=== PATIENT | male | born 1955 | race Caucasian/White ===

== ENCOUNTER 2020-04-01 06:18 | Outpatient (REF) | payer BC, SELFPAY | END 2020-04-01 06:19 | disposition home or self-care (01) | LOC: HO.LAB 06:18 | PROVIDERS: Visit Provider Internal Medicine | DX: Z20.828 Contact with and (suspected) exposure to other viral communicable diseases (principal) | CPT/HCPCS: C9803; U0003 ==

== ENCOUNTER 2020-04-30 06:03 | Outpatient (REF) | payer BC, SELFPAY ==
[2020-04-30 11:12] LABS: MANUAL DIFF FLAG NO
[2020-04-30 11:32] LABS: Basophils Percent Auto 0.5 % (0-2); Eosinophils Absolute Auto 0.2 X10*3/uL (0.0-0.4); Eosinophils Percent Auto 5.1 % (0-4); Hematocrit 44.2 % (42-52); Hemoglobin 14.6 g/dl (14.0-18.0); Imm Gran Abs Auto 0.01 X10*3/uL (0.00-0.03); Imm Gran Pct Auto 0.2 % (0.0-0.4); Lymphocytes Absolute Auto 1.5 X10*3/uL (1.2-4.9); Lymphocytes Percent Auto 37.3 % (20-40); Mean Corpuscular Hemoglobin 29.9 pg (27.0-33.0); Mean Corpuscular Volume 90.6 fL (80-98); Mean Platelet Volume 10.9 fL (9.4-12.4); Monocytes Absolute Auto 0.6 X10*3/uL (0.1-1.2); Monocytes Percent Auto 13.5 % (2-11); Neutrophils Absolute Auto 1.8 X10*3/uL (2.0-8.3); Neutrophils Percent Auto 43.4 % (45-73); Platelet Count 199 X10*3/uL (160-400); Red Blood Count 4.88 X10*6/uL (4.60-5.80); Red Cell Distribution Width 12.3 % (11.0-16.0); White Blood Count 4.1 X10*3/uL (4.8-10.8)
[2020-04-30 11:50] LABS: Alanine Aminotransferase 22 U/L (0-40); Alkaline Phosphatase 60 U/L (39-117); Anion Gap 11 (12-20); Aspartate Amino Transferase 21 U/L (5-37); Bilirubin Total 0.8 mg/dL (0.0-1.0); Blood Urea Nitrogen 18 mg/dL (9-16); Calcium 8.6 mg/dL (8.4-10.2); Carbon Dioxide 28 mmol/L (22-29); Chloride 105 mmol/L (96-108); Cholesterol 178 mg/dL; Estimated Glomerular Filt Rate > 60; Glucose Fasting 100 mg/dL (60-99); HDL Cholesterol 44 mg/dL; LDL Cholesterol Calculated 104 mg/dl; Potassium 4.1 mmol/l (3.3-5.1); Sodium 140 mmol/L (135-145); Total Protein 6.7 g/dL (6.5-8.0); Triglycerides 153 mg/dL
[2020-04-30 12:13] LABS: Prostate Specific Antigen Scr 2.51 ng/mL (<0.05-4.0); T4 Thyroxine 6.9 ug/dL (4.5-12.0)
[2020-04-30 12:17] LABS: Vitamin B12 246 pg/mL (200-900)
[2020-04-30 12:34] LABS: Thyroid Stimulating Hormone 2.22 uIU/mL (0.32-4.0)
== END 2020-04-30 06:04 | disposition home or self-care (01) ==
LOC: HO.HMGCLDS 06:03
PROVIDERS: PCP Internal Medicine; Visit Provider Internal Medicine
DX: E78.00 Pure hypercholesterolemia, unspecified (principal); Z12.5 Encounter for screening for malignant neoplasm of prostate
CPT/HCPCS: 36415; 80053; 80061; 82607; 82746; 84153; 84436; 84443; 85025

== ENCOUNTER 2020-10-09 14:54 | Emergency (ER) | payer OTHER, BC, SELFPAY ==
--- NOTE | ~2020-10-09 | XR_ITS ---
EXAMINATION: XR HAND, LEFT CLINICAL INFORMATION: Crush injury/laceration. COMPARISON: None TECHNIQUE: PA, lateral, and oblique views of the left hand. FINDINGS: There is a nondisplaced fracture phalangeal tuft fourth digit and a soft tissue laceration involving the distal third and fourth digits. No additional bony abnormality seen. XR/XR hand LT min 3V IMPRESSION: Nondisplaced fracture phalangeal tuft fourth digit. Soft tissue laceration distal phalanx third and fourth digits volar aspect.
[2020-10-09 15:02] VITALS: BP 160/89; PULSE 99; RESP 14; TEMP 37.1; O2SAT 95; BMI 30.7
[2020-10-09] MEDS: Diphth,Pertus(ACell),Tet Adult 0.5 ML SYRINGE IM (15:53)
[2020-10-09] MEDS: Lidocaine HCl 1 % MPF 5 ML VIAL SUBCUT ×2 (15:55)
--- NOTE | 2020-10-09 16:09 | ED.EXTPRO ---
HPI - Extremity Problem General Chief complaint: Extremity Injury, Upper Stated complaint: FINGER INJ AT WORK Time Seen by Provider: 10/09/20 15:40 History of Present Illness HPI Narrative: Patient complains of injury to left 3rd and 4th fingers after the fingertips were caught in a roller at work, he does complain of some decreased sensation in the tip of the 4th finger, no other injury Related Data Home Medications Medication Instructions Recorded Confirmed cholecalciferol (vitamin D3) 25 25 mcg PO DAILY 05/13/20 05/13/20 mcg (1,000 unit) capsule flaxseed oil 1,000 mg capsule 1,000 mg PO DAILY 05/13/20 05/13/20 lactobacillus combination no.8 3 3,000 mmu cells PO DAILY 05/13/20 05/13/20 billion cell capsule uskthmla-own-iirdg acid 300 1 tab PO DAILY 05/13/20 05/13/20 mcg-lycopene 600 mcg-lutein 300 mcg tablet Previous Rx's Medication Instructions Recorded simvastatin 5 mg tablet 5 mg PO BEDTIME #90 tab 04/26/20 cephalexin 500 mg PO QID 3 Days #12 tab 10/09/20 cephalexin 500 mg capsule 500 mg PO QID #16 cap 10/15/20 Allergies Allergy/AdvReac Type Severity Reaction Status Date / Time Penicillins Allergy Mild Diarrhea Verified 10/28/20 14:27 Review of Systems Review of Systems: Positive blur left 3rd and 4th finger pain Negatives are no head injury no headache no neck pain no back pain no weakness Yes all other systems are reviewed and are negative PMFSH Past Medical History Source: nursing notes reviewed Medical History Allergic rhinitis Anxiety and depression Hypercholesterolemia Obesity (BMI 30-39.9) Surgical History No pertinent past surgical history Family History Family History Father Mouth cancer Mother Melanoma Maternal Uncle Lung cancer Prostate cancer Social History Social History (Updated 10/28/20 @ 14:31 by Karen Duran) Alcohol intake: current Alcohol intake frequency: a few times a week Alcohol type: beer 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 [employer] Physical Exam Vital Signs: Vital Signs: Last Vital Signs Temp 98.8 F 10/09/20 15:02 Pulse 99 06/02/21 15:02 Resp 14 10/09/20 15:02 BP 160/89 H 10/09/20 15:02 Pulse Ox 95 10/09/20 15:02 Body Mass Index 30.7 General appearance is no acute distress Head is normocephalic atraumatic Neck is supple Respiratory no distress Left hand exam, there is decreased sensation in left 3rd and 4th finger tips, there are skin avulsions of both left 3rd and 4th finger left middle finger has a large subungual hematoma and the nail is loose, there is no obvious skin lacerations there was tenderness No evidence of any tendon deficit Course Course Course Narrative: X-ray showed a nondisplaced fracture of the 4th digit, which is an open fracture because of the wound above it Left 3rd finger was cleansed and irrigated a digital block was placed and the loose nail was trimmed and the proximal portion was placed back in the nail fold Patient is treated with antibiotic and [facility] or [facility]opedist Discharge Plan Discharge Clinical Impression: Avulsion of fingernail of left hand, Open fracture Patient Disposition: Home, Self-Care Additional Instructions: X-ray showed that there was a fracture of the ring finger so an open fracture can get infected so we are treating with antibiotic for 3 days to prevent infection Follow with orthopedist, you may need a referral from work [facility] so it is all covered by [place] Got a tetanus shot today and we are giving you Keflex antibiotic for 3 days to prevent infection Return anytime for redness swelling pain fever any sign of infection any worse condition any concerns I slid a piece of the nail back into the nail bed to help hold the space open and hopefully new nail will grow You got a tetanus shot today Take probiotics with antibiotic to help prevent diarrhea Prescriptions: New cephalexin 500 mg tablet 500 mg PO QID 3 Days Qty: 12 RF: 0 No Action simvastatin 5 mg tablet 5 mg PO BEDTIME Qty: 90 RF: 1 Centrum Silver Ultra Men's 300-600-300 mcg tablet 1 tab PO DAILY RF: 0 flaxseed oil 1,000 mg capsule 1,000 mg PO DAILY RF: 0 cholecalciferol (vitamin D3) 25 mcg (1,000 unit) capsule 25 mcg PO DAILY RF: 0 Adult Probiotic 3 billion cell capsule 3,000 mmu cells PO DAILY RF: 0 cephalexin 500 mg capsule 500 mg PO QID Qty: 16 RF: 0 Referrals: [facility] [Provider Group] - 2 days (Finger nail avulsion left 3rd and 4th fingers and open fracture to left 4th finger) Teresa Rodriguez MD [Physician] - 2 days (Fingernail avulsion to left 3rd and 4th fingers, open fracture left 4th finger) Stand Alone Forms: Work/School Release Interventions: ED Discharge Assessment Last Done: 10/09/20 17:09 Discharge Date/Time: 10/09/20 17:11
[2020-10-09] MEDS: cephALEXin 500 MG CAPSULE PO (16:40)
== END 2020-10-09 17:11 | disposition home or self-care (01) ==
PROVIDERS: Emergency Provider Emergency Medicine; PCP Internal Medicine
DX: S62.665B Nondisplaced fracture of distal phalanx of left ring finger, initial encounter for open fracture (principal); S61.303A Unspecified open wound of left middle finger with damage to nail, initial encounter; W31.89XA Contact with other specified machinery, initial encounter; Y93.89 Activity, other specified; Y92.59 Other trade areas as the place of occurrence of the external cause; Y99.0 Civilian activity done for income or pay
CPT/HCPCS: 29130; 73130; 73140; 90471; 90715; 96372; 99283; 99284

== ENCOUNTER → 2020-10-11 12:37 | Outpatient (BNVA) | payer OTHER, SELFPAY | PROVIDERS: Visit Provider Physician Assistant Medical | DX: S61.313A Laceration without foreign body of left middle finger with damage to nail, initial encounter (principal); S61.315A Laceration without foreign body of left ring finger with damage to nail, initial encounter; S62.665B Nondisplaced fracture of distal phalanx of left ring finger, initial encounter for open fracture; W31.9XXA Contact with unspecified machinery, initial encounter | CPT/HCPCS: 99202 ==

== ENCOUNTER → 2020-10-14 15:07 | Outpatient (BNVA) | payer OTHER, SELFPAY | PROVIDERS: Visit Provider Orthopaedic Surgery | DX: S62.635D Displaced fracture of distal phalanx of left ring finger, subsequent encounter for fracture with routine healing (principal); S69.92XD Unspecified injury of left wrist, hand and finger(s), subsequent encounter | CPT/HCPCS: 99202 ==

== ENCOUNTER → 2020-10-28 14:18 | Outpatient (BNVA) | payer OTHER, SELFPAY | PROVIDERS: Visit Provider Orthopaedic Surgery | DX: S67.195A Crushing injury of left ring finger, initial encounter (principal); S67.193A Crushing injury of left middle finger, initial encounter; S62.665B Nondisplaced fracture of distal phalanx of left ring finger, initial encounter for open fracture; R20.0 Anesthesia of skin | CPT/HCPCS: 99212 ==

== ENCOUNTER 2020-11-05 06:02 | Outpatient (REF) | payer BC, SELFPAY ==
[2020-11-05 11:54] LABS: Alanine Aminotransferase 19 U/L (0-40); Albumin Level 4.3 g/dL (3.5-5.0); Alkaline Phosphatase 62 U/L (39-117); Anion Gap 13 (12-20); Aspartate Amino Transferase 19 U/L (5-37); Bilirubin Total 1.2 mg/dL (0.0-1.0); Blood Urea Nitrogen 22 mg/dL (9-16); Calcium 9.1 mg/dL (8.4-10.2); Carbon Dioxide 25 mmol/L (22-29); Chloride 107 mmol/L (96-108); Cholesterol 201 mg/dL; Estimated Glomerular Filt Rate > 60; Glucose Random 99 mg/dL (60-115); HDL Cholesterol 56 mg/dL; LDL Cholesterol Calculated 123 mg/dl; Potassium 4.1 mmol/L (3.3-5.1); Sodium 141 mmol/L (135-145); Total Protein 6.9 g/dL (6.5-8.0); Triglycerides 112 mg/dL
[2020-11-05 12:15] LABS: Estimated Average Glucose 111 mg/dL; Hemoglobin A1c % 5.5 %
== END 2020-11-05 06:03 | disposition home or self-care (01) ==
LOC: HO.HMGCLDS 06:02
PROVIDERS: PCP Internal Medicine; Visit Provider Internal Medicine
DX: R73.02 Impaired glucose tolerance (oral) (principal); E78.00 Pure hypercholesterolemia, unspecified
CPT/HCPCS: 36415; 80053; 80061; 83036

== ENCOUNTER → 2021-01-08 12:10 | Outpatient (BNVA) | payer OTHER, SELFPAY | PROVIDERS: PCP Internal Medicine; Visit Provider Physician Assistant Medical | DX: S61.032D Puncture wound without foreign body of left thumb without damage to nail, subsequent encounter (principal); W86.1XXD Exposure to industrial wiring, appliances and electrical machinery, subsequent encounter | CPT/HCPCS: 73120; 99203 ==

== ENCOUNTER → 2021-01-10 13:13 | Outpatient (BNVA) | payer OTHER, SELFPAY | PROVIDERS: PCP Internal Medicine; Visit Provider Physician Assistant Medical | DX: S61.04 Puncture wound with foreign body of thumb without damage to nail (principal); X58.XXXD Exposure to other specified factors, subsequent encounter | CPT/HCPCS: 99213 ==

== ENCOUNTER → 2021-01-20 10:43 | Outpatient (BNVA) | payer OTHER, SELFPAY | PROVIDERS: PCP Internal Medicine; Visit Provider Physician Assistant Medical | DX: S61.04 Puncture wound with foreign body of thumb without damage to nail (principal); X58.XXXD Exposure to other specified factors, subsequent encounter | CPT/HCPCS: 99213 ==

== ENCOUNTER 2021-05-14 08:23 | Outpatient (REF) | payer BC, SELFPAY ==
[2021-05-14 08:35] LABS: MANUAL DIFF FLAG NO
[2021-05-14 08:41] LABS: Basophils Percent Auto 0.6 % (0-2); Eosinophils Absolute Auto 0.2 X10*3/uL (0.0-0.4); Eosinophils Percent Auto 4.5 % (0-4); Hematocrit 46.1 % (42.0-52.0); Hemoglobin 15.5 g/dl (14.0-18.0); Imm Gran Abs Auto 0.01 X10*3/uL (0.00-0.03); Imm Gran Pct Auto 0.2 % (0.0-0.4); Lymphocytes Absolute Auto 1.3 X10*3/uL (1.2-4.9); Lymphocytes Percent Auto 25.4 % (20-40); Mean Corpuscular HGB Conc 33.6 g/dl (31.0-36.0); Mean Corpuscular Hemoglobin 29.8 pg (27.0-33.0); Mean Corpuscular Volume 88.5 fL (80.0-98.0); Mean Platelet Volume 9.6 fL (9.4-12.4); Monocytes Absolute Auto 0.5 X10*3/uL (0.1-1.2); Monocytes Percent Auto 10.3 % (2-11); Platelet Count 194 X10*3/uL (160-400); Red Blood Count 5.21 X10*6/uL (4.60-5.80); Red Cell Distribution Width 12.4 % (11.0-16.0); White Blood Count 5.1 X10*3/uL (4.8-10.8)
[2021-05-14 09:11] LABS: Alanine Aminotransferase 33 U/L (0-40); Albumin Level 4.3 g/dL (3.5-5.0); Alkaline Phosphatase 62 U/L (39-117); Anion Gap 11 (12-20); Aspartate Amino Transferase 24 U/L (5-37); Bilirubin Total 1.4 mg/dL (0.0-1.0); Blood Urea Nitrogen 18 mg/dL (9-16); Calcium 9.5 mg/dL (8.4-10.2); Carbon Dioxide 26 mmol/L (22-29); Chloride 108 mmol/L (96-108); Cholesterol 200 mg/dL; Estimated Glomerular Filt Rate > 60; Glucose Random 105 mg/dL (60-115); HDL Cholesterol 48 mg/dL; LDL Cholesterol Calculated 127 mg/dl; Potassium 4.4 mmol/L (3.3-5.1); Sodium 141 mmol/L (135-145); Total Protein 7.1 g/dL (6.5-8.0); Triglycerides 127 mg/dL
[2021-05-14 09:31] LABS: Free T4 (Free Thyroxine) 1.11 ng/dL (0.71-1.85); Prostate Specific Antigen Scr 2.12 ng/mL (<0.05-4.0); Thyroid Stimulating Hormone 1.77 uIU/mL (0.32-4.0)
[2021-05-14 09:43] LABS: Folate > 20.0 ng/mL (> or = 4.0); Vitamin B12 673 pg/mL (200-900)
== END 2021-05-14 08:24 | disposition home or self-care (01) ==
LOC: HO.LAB 08:23
PROVIDERS: PCP Internal Medicine; Visit Provider Internal Medicine
DX: R73.02 Impaired glucose tolerance (oral) (principal); E78.00 Pure hypercholesterolemia, unspecified; Z12.5 Encounter for screening for malignant neoplasm of prostate
CPT/HCPCS: 36415; 80053; 80061; 82607; 82746; 84153; 84439; 84443; 85025

== ENCOUNTER → 2022-04-13 07:56 | Outpatient (BNVA) | payer OTHER, SELFPAY | PROVIDERS: PCP Internal Medicine; Visit Provider Internal Medicine | DX: T22.212A Burn of second degree of left forearm, initial encounter (principal); W31.89XA Contact with other specified machinery, initial encounter | CPT/HCPCS: 99202 ==

== ENCOUNTER → 2022-04-21 07:39 | Outpatient (BNVA) | payer OTHER, SELFPAY | PROVIDERS: PCP Internal Medicine; Visit Provider Internal Medicine | DX: T22.212A Burn of second degree of left forearm, initial encounter (principal); W31.89XA Contact with other specified machinery, initial encounter | CPT/HCPCS: 99213 ==

== ENCOUNTER → 2022-04-28 07:43 | Outpatient (BNVA) | payer OTHER, SELFPAY | PROVIDERS: PCP Internal Medicine; Visit Provider Internal Medicine | DX: T22.212D Burn of second degree of left forearm, subsequent encounter (principal); W31.89XD Contact with other specified machinery, subsequent encounter | CPT/HCPCS: 99213 ==

== ENCOUNTER 2022-05-13 06:01 | Outpatient (REF) | payer OTHER, SELFPAY ==
[2022-05-13 11:11] LABS: MANUAL DIFF FLAG NO
[2022-05-13 11:26] LABS: Basophils Percent Auto 0.6 % (0-2); Eosinophils Absolute Auto 0.3 X10*3/uL (0.0-0.4); Eosinophils Percent Auto 6.2 % (0-4); Hematocrit 45.1 % (42.0-52.0); Hemoglobin 15.4 g/dl (14.0-18.0); Imm Gran Abs Auto 0.01 X10*3/uL (0.00-0.03); Imm Gran Pct Auto 0.2 % (0.0-0.4); Lymphocytes Absolute Auto 1.7 X10*3/uL (1.2-4.9); Lymphocytes Percent Auto 34.1 % (20-40); Mean Corpuscular HGB Conc 34.1 g/dl (31.0-36.0); Mean Corpuscular Hemoglobin 30.7 pg (27.0-33.0); Mean Platelet Volume 10.2 fL (9.4-12.4); Monocytes Absolute Auto 0.6 X10*3/uL (0.1-1.2); Monocytes Percent Auto 11.9 % (2-11); Neutrophils Absolute Auto 2.3 x10*3/uL (2.0-8.3); Platelet Count 209 X10*3/uL (160-400); Red Blood Count 5.01 X10*6/uL (4.60-5.80); Red Cell Distribution Width 12.9 % (11.0-16.0); White Blood Count 4.9 X10*3/uL (4.8-10.8)
[2022-05-13 11:34] LABS: Estimated Average Glucose 108 mg/dL; Hemoglobin A1c % 5.4 %
[2022-05-13 11:55] LABS: Alanine Aminotransferase 26 U/L (0-40); Albumin Level 4.1 g/dL (3.5-5.0); Alkaline Phosphatase 59 U/L (39-117); Anion Gap 10 (12-20); Aspartate Amino Transferase 22 U/L (5-37); Bilirubin Total 0.8 mg/dL (0.0-1.0); Blood Urea Nitrogen 18 mg/dL (9-16); Calcium 9.2 mg/dL (8.4-10.2); Carbon Dioxide 28 mmol/L (22-29); Chloride 105 mmol/L (96-108); Cholesterol 200 mg/dL; Estimated Glomerular Filt Rate > 60; Glucose Random 100 mg/dL (60-115); HDL Cholesterol 48 mg/dL; LDL Cholesterol Calculated 133 mg/dl; Potassium 4.4 mmol/L (3.3-5.1); Sodium 139 mmol/L (135-145); Total Protein 6.6 g/dL (6.5-8.0); Triglycerides 98 mg/dL
[2022-05-13 11:57] LABS: Free T4 (Free Thyroxine) 1.14 ng/dL (0.71-1.85); Prostate Specific Antigen Scr 1.93 ng/mL (<0.05-4.0); Thyroid Stimulating Hormone 2.22 uIU/mL (0.32-4.0)
[2022-05-13 12:24] LABS: Folate > 20.0 ng/mL (> or = 4.0); Vitamin B12 578 pg/mL (200-900)
== END 2022-05-13 06:02 | disposition home or self-care (01) ==
LOC: HO.HMGCLDS 06:01
PROVIDERS: PCP Internal Medicine; Visit Provider Internal Medicine
DX: E78.00 Pure hypercholesterolemia, unspecified (principal); R73.02 Impaired glucose tolerance (oral); Z12.5 Encounter for screening for malignant neoplasm of prostate
CPT/HCPCS: 36415; 80053; 80061; 82607; 82746; 83036; 84153; 84439; 84443; 85025

== ENCOUNTER 2023-05-18 06:01 | Outpatient (REF) | payer BC, SELFPAY ==
[2023-05-18 11:10] LABS: MANUAL DIFF FLAG NO
[2023-05-18 11:20] LABS: Basophils Percent Auto 0.9 % (0-2); Eosinophils Absolute Auto 0.2 X10*3/uL (0.0-0.4); Hematocrit 44.6 % (42.0-52.0); Hemoglobin 14.7 g/dl (14.0-18.0); Imm Gran Abs Auto 0.01 X10*3/uL (0.00-0.03); Imm Gran Pct Auto 0.2 % (0.0-0.4); Lymphocytes Absolute Auto 1.7 X10*3/uL (1.2-4.9); Lymphocytes Percent Auto 36.6 % (20-40); Mean Corpuscular Hemoglobin 29.9 pg (27.0-33.0); Mean Corpuscular Volume 90.7 fL (80.0-98.0); Mean Platelet Volume 10.4 fL (9.4-12.4); Monocytes Absolute Auto 0.6 X10*3/uL (0.1-1.2); Monocytes Percent Auto 11.9 % (2-11); Neutrophils Absolute Auto 2.1 x10*3/uL (2.0-8.3); Neutrophils Percent Auto 45.4 % (45-73); Platelet Count 188 X10*3/uL (160-400); Red Blood Count 4.92 X10*6/uL (4.60-5.80); Red Cell Distribution Width 13.2 % (11.0-16.0); White Blood Count 4.6 X10*3/uL (4.8-10.8)
[2023-05-18 11:31] LABS: Estimated Average Glucose 111 mg/dL; Hemoglobin A1c % 5.5 % (<6.0)
[2023-05-18 11:47] LABS: Alanine Aminotransferase 21 U/L (0-40); Alkaline Phosphatase 57 U/L (39-117); Anion Gap 10 (12-20); Aspartate Amino Transferase 21 U/L (5-37); Bilirubin Total 1.2 mg/dL (0.0-1.0); Blood Urea Nitrogen 23 mg/dL (9-16); Calcium 9.1 mg/dL (8.4-10.2); Carbon Dioxide 25 mmol/L (22-29); Chloride 108 mmol/L (96-108); Cholesterol 189 mg/dL (<200); Estimated Glomerular Filt Rate > 60; Glucose Random 99 mg/dL (60-115); HDL Cholesterol 47 mg/dL (>40); LDL Cholesterol Calculated 122 mg/dL (<100); Potassium 4.1 mmol/L (3.3-5.1); Sodium 139 mmol/L (135-145); Total Protein 6.8 g/dL (6.5-8.0); Triglycerides 101 mg/dL (<150)
[2023-05-18 11:53] LABS: Free T4 (Free Thyroxine) 0.99 ng/dL (0.71-1.85); Thyroid Stimulating Hormone 1.72 uIU/mL (0.32-4.0)
[2023-05-18 12:11] LABS: Prostate Specific Antigen Scr 3.01 ng/mL (<0.05-4.0); Vitamin B12 764 pg/mL (200-900)
[2023-05-18 12:28] LABS: Folate 14.6 ng/mL (> or = 4.0)
== END 2023-05-18 06:02 | disposition home or self-care (01) ==
LOC: HO.HMGCLDS 06:01
PROVIDERS: PCP Internal Medicine; Visit Provider Internal Medicine
DX: Z12.5 Encounter for screening for malignant neoplasm of prostate (principal); R73.02 Impaired glucose tolerance (oral); E78.00 Pure hypercholesterolemia, unspecified
CPT/HCPCS: 36415; 80053; 80061; 82607; 82746; 83036; 84153; 84439; 84443; 85025

== ENCOUNTER 2023-05-24 17:01 | Outpatient (AMB) | payer BC, SELFPAY ==
[2023-05-24 17:07] VITALS: BP 144/80; PULSE 80; O2SAT 95; BMI 33.0
--- NOTE | 2023-05-24 17:07 | A.OFFPC_ITS ---
Vital Signs 05/24/23 17:07 Height 5 ft 9.5 in Weight 226 lb 8 oz BMI 33.0 BP 144/80 H Blood Pressure Location Lt brachial Position Sitting Pulse 80 Pulse Source Pulse Oximeter Pulse Oximetry (%) 95 Oxygen Delivery Method Room Air Intake Visit Reasons: PHYSICAL Intake Note: Patient is here today for a physical. Licensed Psychologist Director Required: No Accompanied by: Self / Same As Patient Allergies Penicillins Allergy (Mild, Verified 05/24/23 17:13) Diarrhea Medication List - Last Reconciled 05/24/23 by Anita Geroge MD biotin 5 mg PO DAILY cholecalciferol (vitamin D3) 25 mcg PO DAILY cyanocobalamin (vitamin B-12) 1,000 mcg PO DAILY flaxseed oil 1,000 mg PO DAILY lactobacillus combination no.8 (Adult Probiotic) 3,000 mmu cells PO DAILY lm-rki-qunyq-X2-xxizbtt-uhmlez [id number] mcg (Centrum Silver Ultra Men's) 1 tab PO DAILY simvastatin 5 mg PO BEDTIME Tobacco use date assessed: 05/24/23 Fall risk assessment: No Falls in past year Last assessed Fall Risk: 05/24/23 Dental Screening Dental Screen Date: 05/24/23 Did you have a dental visit in the last 12 months?: Yes Did you have a dental problem in the last 6 months where you did not have access to dental care?: No Was dental information given to patient?: Patient has dentist HPI PHYSICAL HPI Details 68-year-old obese male with hypercholest erolemia impaired glucose tolerance coming in for physical exam last seen in May 2022. Patient's colonoscopy up-to-date March 2018. Review of the notes October 2022 seen [facility] the [facility] for sinus problems treated with Z-Parker. problem of deviated septum. recently slipped and fall on back - no cp, sob, syncope. bruise on extremeties. urine slow stream [facility] Medical History Allergic rhinitis Anxiety and depression Hypercholesterolemia Obesity (BMI 30-39.9) Surgical History No pertinent past surgical history Family History Father Mouth cancer Alcohol abuse Mother Melanoma Maternal Uncle Lung cancer Prostate cancer Social History (Updated 05/24/23 @ 17:17 by Anita George MD) Housing: House Alcohol intake: current Alcohol intake frequency: a few times a week Alcohol type: beer Comment: 2 days 4 beers each time a week Patient Tobacco Use Status: Former Tobacco user Tobacco use type: Cigarette Years Smoked: quit at 38 years old e-Cigarette/Vaping Use: Never Used Second Hand Smoke Exposure: No service: No Current occupational status: employed 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 1. Little interest or pleasure in doing things: not at all 2. Feeling down, depressed, or hopeless: not at all 3. Trouble falling or staying asleep, or sleeping too much: not at all 4. Feeling tired or having little energy: not at all 5. Poor appetite or overeating: not at all 6. Feeling bad about yourself - or that you are a failure or have let yourself or your family down: not at all 7. Trouble concentrating on things, such as reading the newspaper or watching television: not at all 8. Moving or speaking so slowly that other people could have noticed. Or the op posite - being so fidgety or restless that you have been moving around a lot more than usual: not at all 9. Thoughts that you would be better off or of hurting yourself in some way: not at all Total score: 0 Depression Screening Interpretation: Negative Depression Screening Done: Yes 64171 - PHQ-9 Billing: Yes Source: Developed by Drs. Derian Holman, Madisyn Zuniga, Deo Mann and colleagues, with an educational anne from [employer]. Thrive Questionnaire Date Thrive assessed: 05/24/23 I am a: Patient What is your living situation today?: I have a steady place to live Within the past 12 months, did the food you bought not last and you didn't have the money to get more?: Never true Within the past 12 months, did you worry whether your food would run out before you got money to buy more?: Never true Do you have trouble paying for medicines?: No Do you have trouble getting transportation to medical appointments?: No Do you have trouble paying your heating and electricity bill?: No Do you have trouble taking care of your child, family member or friend?: No Do you have trouble with day-to-day activities such as bathing, preparing meals, shopping, managing finances, etc.?: No Are you currently unemployed and looking for a job?: No Are you interested in more education?: No Please select the resources that you would like help with: None AUDIT C Alcohol Use Questionnaire (AUDIT-C) 1. How often do you have a drink containing alcohol?: Monthly or less 2. How many drinks containing alcohol do you have on a typical day when you are drinking?: 3 or 4 3. How often do you have six or more drinks on one occasion?: Never Total Score: 2 URIEL-7 AMB Questionnaire URIEL-7 Date URIEL - 7 assessed: 05/24/23 Feeling nervous, anxious, or on edge: 0 = Not at all Not being able to stop or control worryin = Not at all Worrying too much about different things: 0 = Not at all Trouble relaxin = Not at all Being so restless that it is hard to sit still: 0 = Not at all Becoming easily annoyed or irritable: 0 = Not at all Feeling afraid as if something awful might happen: 0 = Not at all Total URIEL-7 score (0-4 normal; 5-9 mild; 10-14 moderate; 15-21 severe): 0 Source: Developed by Drs. Derian Holman, Madisyn Zuniga, Deo Mann and colleagues, with an educational anne from [employer]. URIEL-7 Assessment Billing URIEL-7 Assessment Tool: URIEL-7 Assessment 92075 Review of Systems Const Denies poor appetite and Denies weakness Eyes Denies no additional complaints ENT Reports Normal hearing present, Denies dizziness, Denies nasal congestion, Denies tinnitus and Denies sore throat Card Denies chest pain, Denies syncope, Denies rapid heart rate and Denies dyspnea Resp Denies cough and Denies dyspnea GI Denies change in stool character, Reports constipation, Denies diarrhea, Denies nausea and Denies vomiting Denies dysuria and Denies urinary frequency Neuro Reports Normal hearing present, Denies confusion, Denies dizziness, Denies syncope and Denies weakness Psych Denies confusion Physical exam (Primary Care) Vital Signs: Last Vital Signs Pulse 80 05/24/23 17:07 BP 144/80 H 05/24/23 17:07 Pulse Ox 95 05/24/23 17:07 Oxygen Delivery Method Room Air 05/24/23 17:07 BMI result Body Mass Index 33.0 Tobacco/Smoking Status: Tobacco use Status Tobacco use date assessed 05/18/22 05/24/23 17:10 Patient Tobacco Use Status Former Tobacco user 05/24/23 17:10 Tobacco use type Cigarette 05/24/23 17:10 e-Cigarette/Vaping Use Never Used 05/24/23 17:10 PHQ-9: PHQ-9 Score PHQ-9: Total score 0 05/24/23 17:10 Depression Screening Interpretation: Negative Thrive Assessment: Date of Thrive Assessment Date Thrive assessed 05/24/23 05/24/23 17:10 Const General: No confusion Orientation/consciousness: No confusion HENMT Head: Yes normocephalic Ears: external ears normal and TM's normal bilaterally Face and sinus: Yes normal facial exam Mouth: moist mucous membranes Throat: Yes tonsils normal Eyes Conjunctivae: conjunctivae normal Pupils: Equal, round and reactive pupils present and Pupil accommodation reflex normal Direct Ophthalmoscopy: normal light reflex Neck Neck: No lymphadenopathy Thyroid: Thyroid normal Chest Chest palpation & inspection: normal inspection of the chest Resp Effort & Inspection: normal respiratory effort and no audible wheezes Auscultation: clear to auscultation bilaterally, no crackles, no wheezes and lung sounds not diminished Cardio Rate: regular rate Rhythm: regular rhythm Peripheral pulses: radial pulses present and dorsalis pedis present GI Other: guaiac negative, prostate normal Palpation (GI): no masses Auscultation: normal bowel sounds and normoactive bowel sounds Rectal Exam - Male: Yes deferred Male General Exam: Yes normal external exam Skin Other: bruise noted on the L medial thigh to the knee and posterior R thigh General skin exam: no rashes or lesions noted Rashes: no rashes Neuro General: No confusion Cranial nerves: Yes Equal, round and reactive pupils present and Yes Normal hearing present Cognition (Neuro): normal cognition Gait exam (Neuro): Normal gait present Motor exam (neuro): 5/5 motor strength present throughout Deep tendon reflexes (DTR's): Right brachioradialis reflex intensity grade: 2+, Left brachioradialis reflex intensity grade: 2+, Right patellar reflex intensity grade: 2+ and Left patellar reflex intensity grade: 2+ Extrem General: No edema Assessment and Plan Assessment & Plan (1) Annual physical exam: Code(s): Z00.00 - Encounter for general adult medical examination without abnormal findings (2) Hypercholesterolemia: Comment: March 2014 Code(s): E78.00 - Pure hypercholesterolemia, unspecified Plan: Avoid fried foods, chicken skin, eggs, butter margarine, pastries and meat. Be it pork or beef they have a lot of cholesterol LDL goal of less than 130 and triglyceride of less than 150. Patient on simvastatin 5 mg (3) Obesity (BMI 30-39.9): Code(s): E66.9 - Obesity, unspecified Plan: Diet and exercise (4) Impaired glucose tolerance: Code(s): R73.02 - Impaired glucose tolerance (oral) Plan: Decrease the amount of carbohydrate intake, pasta, bread, rice and potatoes are all sugar and that is aside from all the sweet stuff, remember that fruits are good but they are Sweet also. Blood work May 2022 normal (5) Increased prostate specific antigen (PSA) velocity: Code(s): R97.20 - Elevated prostate specific antigen [PSA] Plan: Will monitor for this and keep an eye on it in 6 months (6) Deviated nasal septum: Code(s): J34.2 - Deviated nasal septum Plan: will call if wants referral to ENT (7) GERD (gastroesophageal reflux disease): Code(s): K21.9 - Gastro-esophageal reflux disease without esophagitis Plan: Avoid the foods that causes that usually spicy foods, tomato products, juices, coffee, soda and foods that your sensitive to. After eating do not lie down, allow 3-4 hours before in lie down. And keep the head of bed above 30 degrees to avoid the acid from going up. Orders: Orders PSA,Total (Free>4and<10) 6 Months R97.20 - Elevated prostate specific antigen [PSA] Coding Level of Care Code Est Pt Prev Care >65y(18266) Diagnoses Annual physical exam Z00.00 Hypercholesterolemia E78.00 Obesity (BMI 30-39.9) E66.9 Impaired glucose tolerance R73.02 Increased prostate specific antigen (PSA) velocity R97.20 Deviated nasal septum J34.2 GERD (gastroesophageal reflux disease) K21.9 Additional Codes RUIEL-7 Assessment Billing - URIEL-7 Assessment Tool: URIEL-7 Assessment 72295 ([id number])
== END 2023-05-24 17:45 | disposition home or self-care (01) ==
LOC: HO.HMGH 17:01
PROVIDERS: PCP Internal Medicine; Visit Provider Internal Medicine
DX: Z00.00 Encounter for general adult medical examination without abnormal findings (principal); E78.00 Pure hypercholesterolemia, unspecified; E66.9 Obesity, unspecified; Z68.33 Body mass index [BMI] 33.0-33.9, adult; R73.02 Impaired glucose tolerance (oral); R97.20 Elevated prostate specific antigen [PSA]; J34.2 Deviated nasal septum; K21.9 Gastro-esophageal reflux disease without esophagitis
CPT/HCPCS: 99397

== ENCOUNTER → 2023-07-21 11:13 | Outpatient (BNVA) | payer OTHER, SELFPAY | PROVIDERS: PCP Internal Medicine; Visit Provider Internal Medicine | DX: H57.8A1 Foreign body sensation, right eye (principal) | CPT/HCPCS: 92002; 99202 ==

== ENCOUNTER 2023-09-30 09:07 | Outpatient (REF) | payer BC, OTHER, SELFPAY ==
[2023-09-30 11:03] LABS: PSA,Total (Free>4and<10) 2.03 ng/mL (0.00-4.00)
== END 2023-09-30 09:08 | disposition home or self-care (01) ==
LOC: HO.HMGCLDS 09:07
PROVIDERS: PCP Internal Medicine; Visit Provider Internal Medicine
DX: R97.20 Elevated prostate specific antigen [PSA] (principal); Z12.5 Encounter for screening for malignant neoplasm of prostate
CPT/HCPCS: 36415; 84153

== ENCOUNTER 2024-02-10 07:34 | Emergency (ER) | payer BC, SELFPAY ==
--- NOTE | ~2024-02-10 | XR_ITS ---
EXAMINATION: XR KNEE, LEFT CLINICAL INFORMATION: Knee swelling after a fall COMPARISON: None available. TECHNIQUE: Four views of the left knee. FINDINGS: There is prepatellar soft tissue swelling. There is mild degenerative change with narrowing of the medial compartment. No chondrocalcinosis. No fractures or dislocations. No definite joint effusion seen. XR/XR knee LT 4V IMPRESSION: Prepatellar soft tissue swelling. Mild narrowing of the medial compartment. No fractures or dislocations. Electronically signed by: Edward Logan MD 02/10/2024 10:39 AM EDT
[2024-02-10 07:35] VITALS: BP 102/85; PULSE 80; RESP 16; TEMP 36.3; O2SAT 100; BMI 33.7
--- NOTE | 2024-02-10 07:59 | ED.LOWEXIN ---
HPI - Extremity Injury (Lower) General Chief Complaint: Extremity Injury, Lower Stated Complaint: fall-l knee inj Time Seen by Provider: 02/10/24 07:42 Source: patient Mode of arrival: ambulatory Limitations: no limitations History of Present Illness HPI Narrative: 69 year old male PMH: GERD who presents to the ER with left knee pain. Patient states he fell on his knee last month. Patient denies hitting head no LOC has not taken anything for pain. Woke up this morning and is worried something happened to his kneecap. Related Data Home Medications ?Medication ?Instructions ?Recorded ?Confirmed cholecalciferol (vitamin D3) 25 25 mcg PO DAILY 05/13/20 05/24/23 mcg (1,000 unit) capsule lactobacillus combination no.8 3 3,000 mmu cells PO DAILY 05/13/20 05/24/23 billion cell capsule (Adult Probiotic) yuhzgscv-ed-kqcsk 300 mcg-K 60 1 tab PO DAILY 05/13/20 05/24/23 mcg-lycop 600 mcg-lutein 300 mcg tablet (Centrum Silver Ultra Men's) cyanocobalamin (vitamin B-12) 1,000 mcg PO DAILY 11/12/20 05/24/23 1,000 mcg tablet biotin 5 mg capsule 5 mg PO DAILY 05/24/23 05/24/23 flaxseed oil 1,000 mg capsule 1,000 mg PO DAILY 05/24/23 05/24/23 Previous Rx's ?Medication ?Instructions ?Recorded simvastatin 5 mg tablet 5 mg PO BEDTIME #90 tabs 08/26/23 Allergies Allergy/AdvReac Type Severity Reaction Status Date / Time Penicillins Allergy Mild Diarrhea Verified 02/10/24 07:37 Review of Systems Review of Systems: Review of systems: General: Patient denies any fever chills recent illness or falls Musculoskeletal: Denies back pain or body aches or other injuries HEENT: denies headache, runny nose, ear pain Respiratory: denies shortness of breath, cough Cardiovascular: no chest pain or palpitations : denies dysuria, frequency Abdomen: no nausea vomiting denies abdominal pain Extremities: left knee pain and swelling Skin: no diaphoresis Yes all other systems are reviewed and are negative [facility] Past Medical History Medical History Allergic rhinitis Anxiety and depression Hypercholesterolemia Obesity (BMI 30-39.9) Surgical History No pertinent past surgical history Family History Family History Father Mouth cancer Alcohol abuse Mother Melanoma Maternal Uncle Lung cancer Prostate cancer Social History Social History (Updated 05/24/23 @ 17:17 by Anita George MD) Housing: House Alcohol intake: current Alcohol intake frequency: a few times a week Alcohol type: beer Comment: 2 days 4 beers each time a week Patient Tobacco Use Status: Former Tobacco user Tobacco use type: Cigarette Years Smoked: quit at 38 years old e-Cigarette/Vaping Use: Never Used Second Hand Smoke Exposure: No Advance Directives: No Do you have a plan to hurt others: No Plan service: No Current occupational status: employed 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 [employer] Cognitive needs: No Hearing needs: No Vision needs: Yes Physical Exam Vital Signs: Vital Signs: Last Vital Signs Temp 97.4 F 02/10/24 07:35 Pulse 80 02/10/24 07:35 Resp 16 02/10/24 07:35 BP 102/85 02/10/24 07:35 Pulse Ox 100 02/10/24 07:35 O2 Del Method Room Air 02/10/24 07:35 BMI result Body Mass Index 33.7 General: Well-appearing well-nourished in no signs of distress HEENT: Normocephalic atraumatic Neck: No signs of JVD, no masses no tenderness or lymphadenopathy Cardiovascular: Regular rate and rhythm Respiratory: Clear to auscultation bilaterally Abdomen: Soft nontender no masses Extremities: Normal pedal pulses no signs of edema ligaments intact, left swelling noted on the kneecap no redness or tenderness Skin: Dry warm no rashes Back: No tenderness full ROM Medications Administered Discontinued Medications Generic Name Dose Route Start Last Admin Trade Name Freq PRN Reason Stop Dose Admin Ibuprofen 400 mg 02/10/24 07:59 02/10/24 08:06 Ibuprofen 400 Mg Tablet PO 02/10/24 08:00 Not Given ONCE ONE Medical Decision Making Medical Decision Making MDM Narrative: XR done and is normal. Likely a contusion. I will send home. Differential Diagnosis Differential Diagnoses: The differential diagnosis associated with the presentation includes I will send for a XR to rule out fracture Independent Interpretation I performed an independent interpretation of an: Plain X-Ray Radiology Impression Discussion of test interpretation with radiology: I have reviewed the radiologist's reading. Discharge Plan Discharge Clinical Impression: Contusion of knee, right Patient Disposition: Home, Self-Care Instructions: Contusion in Adults (ED) Additional Instructions: You were seen in the ER for a knee contusion You had a XR which was normal Please call to follow up with your doctor. Prescriptions: No Action simvastatin 5 mg tablet 5 mg PO BEDTIME Qty: 90 1RF cyanocobalamin (vitamin B-12) 1,000 mcg tablet 1,000 mcg PO DAILY Centrum Silver Ultra Men's 300-600-300 mcg tablet 1 tab PO DAILY cholecalciferol (vitamin D3) 25 mcg (1,000 unit) capsule 25 mcg PO DAILY Adult Probiotic 3 billion cell capsule 3,000 mmu cells PO DAILY Rx Instructions: administer with a meal flaxseed oil 1,000 mg capsule 1,000 mg PO DAILY Rx Instructions: administer with a meal biotin 5 mg capsule 5 mg PO DAILY Stand Alone Forms: Work/School Release Print Language: Spanish
--- NOTE | 2024-02-10 08:05 | PC.NURSE ---
Pt offered Motrin at this time, pt does not want any medication stating his pain is tolerable right now, most just when he is moving does the pain increase. Pt advised to let RN know if he changes his mind.
[2024-02-10 09:18] VITALS: BP 142/87; PULSE 84; RESP 20; TEMP 37.2; O2SAT 94
== END 2024-02-10 08:52 | disposition home or self-care (01) ==
PROVIDERS: Emergency Provider Student in an Organized Health Care Education/Training Program; PCP Internal Medicine
DX: S80.01XA Contusion of right knee, initial encounter (principal); M25.562 Pain in left knee; X58.XXXA Exposure to other specified factors, initial encounter; Y93.H3 Activity, building and construction; Y92.89 Other specified places as the place of occurrence of the external cause; Y99.8 Other external cause status; Z79.899 Other long term (current) drug therapy; Z87.891 Personal history of nicotine dependence
CPT/HCPCS: 73564; 99283; 99284

== ENCOUNTER 2024-05-22 06:02 | Outpatient (REF) | payer BC, SELFPAY ==
[2024-05-22 09:58] LABS: MANUAL DIFF FLAG NO
[2024-05-22 10:02] LABS: Basophils Percent Auto 0.6 % (0-2); Eosinophils Absolute Auto 0.2 X10*3/uL (0.0-0.4); Eosinophils Percent Auto 3.4 % (0-4); Hematocrit 44.1 % (42.0-52.0); Hemoglobin 14.8 g/dl (14.0-18.0); Imm Gran Abs Auto 0.01 X10*3/uL (0.00-0.03); Imm Gran Pct Auto 0.2 % (0.0-0.4); Lymphocytes Absolute Auto 1.9 X10*3/uL (1.2-4.9); Lymphocytes Percent Auto 35.3 % (20-40); Mean Corpuscular HGB Conc 33.6 g/dl (31.0-36.0); Mean Corpuscular Hemoglobin 30.1 pg (27.0-33.0); Mean Corpuscular Volume 89.6 fL (80.0-98.0); Mean Platelet Volume 10.2 fL (9.4-12.4); Monocytes Absolute Auto 0.5 X10*3/uL (0.1-1.2); Monocytes Percent Auto 9.9 % (2-11); Neutrophils Absolute Auto 2.7 x10*3/uL (2.0-8.3); Neutrophils Percent Auto 50.6 % (45-73); Platelet Count 198 X10*3/uL (160-400); Red Blood Count 4.92 X10*6/uL (4.60-5.80); Red Cell Distribution Width 12.6 % (11.0-16.0); White Blood Count 5.2 X10*3/uL (4.8-10.8)
[2024-05-22 10:13] LABS: Estimated Average Glucose 111 mg/dL; Hemoglobin A1C 135.5587 umol/L; Hemoglobin A1c % 5.5 % (<6.0); Total Hemoglobin (HGBA1C) 3756.9326 umol/L
[2024-05-22 10:33] LABS: Alanine Aminotransferase 29 U/L (0-40); Albumin Level 3.9 g/dL (3.5-5.0); Alkaline Phosphatase 55 U/L (39-117); Anion Gap 10 (12-20); Aspartate Amino Transferase 23 U/L (5-37); Bilirubin Total 0.8 mg/dL (0.0-1.0); Blood Urea Nitrogen 21 mg/dL (9-16); Calcium 8.9 mg/dL (8.4-10.2); Carbon Dioxide 27 mmol/L (22-29); Chloride 108 mmol/L (96-108); Cholesterol 164 mg/dL (<200); Estimated Glomerular Filt Rate > 60; Glucose Random 96 mg/dL (60-115); HDL Cholesterol 48 mg/dL (>40); LDL Cholesterol Calculated 98 mg/dL (<100); Magnesium 2.2 mg/dL (1.6-2.6); Potassium 4.3 mmol/L (3.3-5.1); Sodium 141 mmol/L (135-145); Total Protein 6.6 g/dL (6.5-8.0); Triglycerides 94 mg/dL (<150)
[2024-05-22 10:37] LABS: Free T4 (Free Thyroxine) 1.07 ng/dL (0.71-1.85); Thyroid Stimulating Hormone 2.15 uIU/mL (0.32-4.0)
[2024-05-22 11:39] LABS: Folate 15.9 ng/mL (> or = 4.0); Vitamin B12 585 pg/mL (200-900)
== END 2024-05-22 06:03 | disposition home or self-care (01) ==
LOC: HO.HMGCLDS 06:02
PROVIDERS: PCP Internal Medicine; Visit Provider Internal Medicine
DX: E78.00 Pure hypercholesterolemia, unspecified (principal); Z12.5 Encounter for screening for malignant neoplasm of prostate; Z13.1 Encounter for screening for diabetes mellitus
CPT/HCPCS: 36415; 80053; 80061; 82607; 82746; 83036; 83735; 84153; 84439; 84443; 85025

== ENCOUNTER 2024-05-26 15:49 | Outpatient (AMB) | payer BC, SELFPAY ==
--- NOTE | 2024-05-26 15:59 | A.OFFPC_ITS ---
Vital Signs 05/26/24 16:01 Height 5 ft 10 in Weight 235 lb 8 oz BMI 33.8 BP 140/72 H Blood Pressure Location Lt brachial Position Sitting Pulse 74 Pulse Source Pulse Oximeter Temp 97.5 F Temp Source Skin Pulse Oximetry (%) 96 Intake Visit Reasons: pe Intake Note: Patient is here today for a physical. 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: Not Required per policy Accompanied by: Self / Same As Patient Allergies Penicillins Allergy (Mild, Verified 05/26/24 16:00) Diarrhea Medication List - Last Reconciled 05/26/24 by Anita George MD cholecalciferol (vitamin D3) 25 mcg PO DAILY cyanocobalamin (vitamin B-12) 1,000 mcg PO DAILY lactobacillus combination no.8 (Adult Probiotic) 3,000 mmu cells PO DAILY [id number] [id number] mcg (Centrum Silver Ultra Men's) 1 tab PO DAILY simvastatin 5 mg PO BEDTIME Tobacco use date assessed: 05/26/24 Fall risk assessment: 1 Fall in past year Last assessed Fall Risk: 05/26/24 Dental Screening Dental Screen Date: 05/26/24 Did you have a dental visit in the last 12 months?: Yes Did you have a dental problem in the last 6 months where you did not have access to dental care?: No Was dental information given to patient?: Patient has dentist HPI pe HPI Details The patient is a 69-year-old male presenting with osteoarthritis primarily affecting the knee. The patient reported falling in his cellar and landing on cement, after which he noticed the knee becoming swollen. An x-ray was performed, revealing joint space narrowing consistent with osteoarthritis. Initially, the knee was swollen and painful, especially when kneeling, but the swelling has decreased, and the knee is feeling better over time. 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 Furthermore, he has been managing anxiety, with significant stress experienced due to family dynamics and political events. Stress was noted to exacerbate dermatitis and cause gastrointestinal symptoms, though these have improved with lifestyle modifications. Additional health concerns include hypertension, for which blood pressure readings were noted as slightly elevated. Past interventions have included dietary modifications and exercise recommendations, though adherence has varied. The patient also described gastrointestinal distress linked to consistent ingestion of apple cider vinegar, leading to heartburn and altered bowel habits. Discontinuation of the vinegar resolved these symptoms. Past episodes of hemorrhoidal distress seem linked to previous gastrointestinal symptoms. Hearing impairment has been addressed through hearing aid use. The patient takes simvastatin for dyslipidemia, achieving favorable cholesterol levels. He remains aware of obesity concerns and acknowledges the need for improved dietary and exercise habits. - Received flu and COVID-19 vaccinations . - Updated shingles vaccine and pneumonia vaccines documented. - Engagement in dietary changes, includi ng increased vegetable intake. - Discussed regular exercise with recomm endations to use home elliptical. - Encouraged routine blood pressure garfield toring due to hypertension. - Reinforced recommendations to manage s tress and limit alcohol intake. - Discussed appropriate use of hearing a ids for age-related hearing loss. - Recently retired but has resumed work part-time due to inactivity concerns. - Lives with his and experiences fa steve-related stress. - Reports regular alcohol consumption of 3-4 beers two to three times a week. - History of smoking, now abstinent. - Concerned with weight management; rajni hoang addresses through adjusted diet. - Desires to engage in physical activity , owns an elliptical machine. - Experiences isolation stress and attem pted mindfulness from political events and family issues. - Musculoskeletal: Reports knee swelling post-fall, improvement noted. - Dermatological: Denies current skin ir ritation; reports past basal cell carcinoma. - Cardiovascular: Denies current chest p ain, exercise-induced stress discussed. - Gastrointestinal: Reports past heartbu rn and changes managed by diet modification, current resolution noted. - Psychological: Acknowledges anxiety; a ssociated with stressors, under current management. - Ocular: No recent changes in vision; a waiting eye exam. - ENT: Reports age-related hearing loss, minimal aid use. - Genitourinary: Denies nocturia. - Labs: Normal blood count, kidney funct ion, liver function, and electrolytes. Fasting glucose within normal limits, thyroid, and B12 normal. - Tests: Cholesterol well-controlled on current medication. [facility] Medical History Allergic rhinitis Anxiety and depression Hypercholesterolemia Obesity (BMI 30-39.9) Surgical History No pertinent past surgical history Family History (Updated 05/26/24 @ 16:04 by MIMI Adam) Father Mouth cancer Alcohol abuse Mother Melanoma Maternal Uncle Lung cancer Prostate cancer Other Substance use disorder Social History (Updated 05/26/24 @ 17:00 by Anita George MD) Housing: House Alcohol intake: current Alcohol intake frequency: a few times a week Alcohol type: beer Comment: 2 days -4 beers each time a week Patient Tobacco Use Status: Former Tobacco user Tobacco use type: Cigarette Years Smoked: quit at 38 years old e-Cigarette/Vaping Use: Never Used Second Hand Smoke Exposure: Yes service: No Current occupational status: employed 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 1. Little interest or pleasure in doing things: several days 2. Feeling down, depressed, or hopeless: not at all 3. Trouble falling or staying asleep, or sleeping too much: not at all 4. Feeling tired or having little energy: several days 5. Poor appetite or overeating: several days 6. Feeling bad about yourself - or that you are a failure or have let yourself or your family down: several days 7. Trouble concentrating on things, such as reading the newspaper or watching television: not at all 8. Moving or speaking so slowly that other people could have noticed. Or the opposite - being so fidgety or restless that you have been moving around a lot more than usual: not at all 9. Thoughts that you would be better off or of hurting yourself in some way: not at all Total score: 4 Depression Screening Interpretation: Positive Depression Screening Done: Yes Source: Developed by Drs. Derian Holman, Madisyn Zuniga, Deo Mann and colleagues, with an educational anne from [employer]. Thrive Questionnaire Date Thrive assessed: 05/26/24 I am a: Patient What is your living situation today?: I have a steady place to live Within the past 12 months, did the food you bought not last and you didn't have the money to get more?: Never true Within the past 12 months, did you worry whether your food would run out before you got money to buy more?: Never true Do you have trouble paying for medicines?: No Do you have trouble getting transportation to medical appointments?: No Do you have trouble paying your heating and electricity bill?: No Do you have trouble taking care of your child, family member or friend?: No Do you have trouble with day-to-day activities such as bathing, preparing meals, shopping, managing finances, etc.?: No Are you currently unemployed and looking for a job?: No Are you interested in more education?: No Please select the resources that you would like help with: None Currently or been in a relationship where the following occur: No concerns reported THRIVE Score: 0 AUDIT C Alcohol Use Questionnaire (AUDIT-C) 1. How often do you have a drink containing alcohol?: 2-3 times a week 2. How many drinks containing alcohol do you have on a typical day when you are drinking?: 3 or 4 3. How often do you have six or more drinks on one occasion?: Never Total Score: 4 URIEL-7 AMB Questionnaire URIEL-7 Date URIEL - 7 assessed: 05/26/24 Feeling nervous, anxious, or on edge: 1 = Several days Not being able to stop or control worryin = Several days Worrying too much about different things: 1 = Several days Trouble relaxin = Not at all Being so restless that it is hard to sit still: 0 = Not at all Becoming easily annoyed or irritable: 1 = Several days Feeling afraid as if something awful might happen: 0 = Not at all Total URIEL-7 score (0-4 normal; 5-9 mild; 10-14 moderate; 15-21 severe): 4 Source: Developed by Drs. Derian Holman, Madisyn Zuniga, Deo Mann and colleagues, with an educational anne from [employer]. Review of Systems Const Denies poor appetite and Denies weakness Eyes Denies no additional complaints ENT Reports Normal hearing present, Denies dizziness, Denies nasal congestion, Denies tinnitus and Denies sore throat Card Denies chest pain, Denies syncope, Denies rapid heart rate and Denies dyspnea Resp Denies cough and Denies dyspnea GI Denies change in stool character, Reports constipation, Denies diarrhea, Denies nausea and Denies vomiting Denies dysuria and Denies urinary frequency Neuro Reports Normal hearing present, Denies confusion, Denies dizziness, Denies syncope and Denies weakness Psych Denies confusion Physical exam (Primary Care) Vital Signs: Last Vital Signs Temp 97.5 F 05/26/24 16:01 Pulse 74 05/26/24 16:01 BP 140/72 H 05/26/24 16:01 Pulse Ox 96 05/26/24 16:01 BMI result Body Mass Index 33.8 Tobacco/Smoking Status: Tobacco use Status Tobacco use date assessed 05/26/24 05/26/24 16:06 Patient Tobacco Use Status Former Tobacco user 05/26/24 16:06 Tobacco use type Cigarette 05/26/24 16:06 e-Cigarette/Vaping Use Never Used 05/26/24 16:06 PHQ-9: PHQ-9 Score PHQ-9: Total score 4 05/26/24 16:06 Depression Screening Interpretation: Positive Thrive Assessment: Date of Thrive Assessment Date Thrive assessed 05/26/24 05/26/24 16:06 Currently or been in a relationship where the following occur: No concerns reported Const General: No confusion Orientation/consciousness: No confusion HENMT Head: Yes normocephalic Ears: external ears normal and TM's normal bilaterally Face and sinus: Yes normal facial exam Mouth: moist mucous membranes Throat: Yes tonsils normal Eyes Conjunctivae: conjunctivae normal Pupils: Equal, round and reactive pupils present and Pupil accommodation reflex normal Direct Ophthalmoscopy: normal light reflex Neck Neck: No lymphadenopathy Thyroid: Thyroid normal Chest Chest palpation & inspection: normal inspection of the chest Resp Effort & Inspection: normal respiratory effort and no audible wheezes Auscultation: clear to auscultation bilaterally, no crackles, no wheezes and lung sounds not diminished Cardio Rate: regular rate Rhythm: regular rhythm Peripheral pulses: radial pulses present and dorsalis pedis present GI Other: guaiac negative prostata N Palpation (GI): no masses Auscultation: normal bowel sounds and normoactive bowel sounds Male General Exam: Yes normal external exam Skin General skin exam: no rashes or lesions noted Rashes: no rashes Neuro General: No confusion Cranial nerves: Yes Equal, round and reactive pupils present and Yes Normal hearing present Cognition (Neuro): normal cognition Gait exam (Neuro): Normal gait present Motor exam (neuro): 5/5 motor strength present throughout Deep tendon reflexes (DTR's): Right brachioradialis reflex intensity grade: 2+, Left brachioradialis reflex intensity grade: 2+, Right patellar reflex intensity grade: 2+ and Left patellar reflex intensity grade: 2+ Extrem General: No edema Coding Level of Care Code Est Pt Prev Care >65y(29889) Diagnoses Annual physical exam Z00.00 Impaired glucose tolerance R73.02 Hypercholesterolemia E78.00 GERD (gastroesophageal reflux disease) K21.9 Blood pressure elevated without history of HTN R03.0 Assessment & Plan Assessment & Plan (1) Annual physical exam: Code(s): Z00.00 - Encounter for general adult medical examination without abnormal findings Category: Medical (2) Impaired glucose tolerance: Code(s): R73.02 - Impaired glucose tolerance (oral) Category: Medical (3) Hypercholesterolemia: Comment: March 2014 Code(s): E78.00 - Pure hypercholesterolemia, unspecified Category: Medical (4) GERD (gastroesophageal reflux disease): Code(s): K21.9 - Gastro-esophageal reflux disease without esophagitis Category: Medical (5) Blood pressure elevated without history of HTN: Code(s): R03.0 - Elevated blood-pressure reading, without diagnosis of hypertension Category: Medical Plan - Continue simvastatin with periodic lipid monitoring as indicated. - Monitor blood pressure regularly at home and adjust antihypertensive therapy if readings trend higher. - Encourage consistent use of hearing aids to manage hearing impairment. - Follow up with tempering machine operator for routine skin assessments. - Maintain current exercise regimen and increase cardiovascular activity as tolerated. - Monitor bowel habits; continue high fiber diet and possible psyllium s upplementation. - Emphasize stress management techniques; consider psychotherapy or consulting psychiatry if anxiety worsens. During the visit, I discussed with the patient the ongoing management of his osteoarthritis and the need for regular physical activity to manage symptoms and improve overall health. We discussed cessation of apple cider vinegar use to mitigate gastrointestinal discomfort and the beneficial changes observed since its discontinuation. His lipid panel results were reviewed, showing efficacy of the current regimen, and we emphasized the necessity of continuing the medicatio n. I advised monitoring blood pressure at home due to current readings' potential impact on long-term cardiovascular health. The importance of stress reduction techniques in managing anxiety and dermatitis was highlighted, suggesting a potential role for medical therapy if symptoms persist. We emphasized vaccinations, preventive care, and the importance of regular follow- ups. - Continue taking prescribed medications including simvastatin and monitor adherence. - Keep a daily log of blood pressure readings and review at the next appointment. - Use hearing aids as needed and schedule regular hearing assessments. - Implement regular exercise practices using the [employer] machine and engage in a balanced diet. - Monitor stress levels and consider relaxation exercises; consult a mental health professional if necessary. - Regularly check skin for changes and schedule periodic tempering machine operator follow- ups. - Avoid apple cider vinegar to prevent gastrointestinal symptoms. - Limit alcohol intake to support healthy lifestyle choices and manage weight. - Schedule an eye exam as planned and report any vision changes immediately. Orders: Orders Free T4 (Free Thyroxine) Today E78.00 - Pure hypercholesterolemia, unspecified Vitamin B12 and Folate Today E78.00 - Pure hypercholesterolemia, unspecified Complete Blood Count Auto Diff Today E78.00 - Pure hypercholesterolemia, unspecified Comprehensive Met. Panel Today E78.00 - Pure hypercholesterolemia, unspecified Prostate Specific Antigen Scr Today E78.00 - Pure hypercholesterolemia, unspecified Lipid Panel Today E78.00 - Pure hypercholesterolemia, unspecified Thyroid Stimulating Hormone 1 Year E78.00 - Pure hypercholesterolemia, unspecified Hemoglobin A1c Today E78.00 - Pure hypercholesterolemia, unspecified
[2024-05-26 16:01] VITALS: BP 140/72; PULSE 74; TEMP 36.4; O2SAT 96; BMI 33.8
== END 2024-05-26 17:18 | disposition home or self-care (01) ==
PROVIDERS: PCP Internal Medicine; Visit Provider Internal Medicine
DX: Z00.00 Encounter for general adult medical examination without abnormal findings (principal); R73.02 Impaired glucose tolerance (oral); E78.00 Pure hypercholesterolemia, unspecified; K21.9 Gastro-esophageal reflux disease without esophagitis; R03.0 Elevated blood-pressure reading, without diagnosis of hypertension

== ENCOUNTER → 2024-05-26 15:49 | Outpatient (BNVA) | payer BC, OTHER, SELFPAY | PROVIDERS: PCP Internal Medicine; Visit Provider Internal Medicine ==

== ENCOUNTER 2025-04-27 10:08 | Outpatient (AMB) | payer BC, SELFPAY ==
[2025-04-27 10:13] VITALS: BP 140/78; PULSE 87; TEMP 36.6; O2SAT 98; BMI 34.9
--- NOTE | 2025-04-27 10:13 | AM.OFFWIN_ITS ---
Intake Vital Signs 04/27/25 10:13 Height 5 ft 10 in Weight 243 lb BMI 34.9 BP 140/78 H Blood Pressure Location Rt brachial Position Sitting Pulse 87 Pulse Source Pulse Oximeter Temp 97.8 F Temp Source Oral Pulse Oximetry (%) 98 Oxygen Delivery Method Room Air Intake Visit Reasons: EP-sinus issue, cough Intake Note: Patient presents c/o cough, sinus congestion/pressure x1 month. Has tried OTC meds with no relief. Patient Tobacco Use Status: Former Tobacco user Allergies Penicillins Allergy (Mild, Verified 04/27/25 10:16) Diarrhea HPI HPI Comments History of Present Illness Details Patient presents to office with 1 month of sinus issues He said onset of congestion, post nasal drip with chest congestion + sinus pressure Feels like now he is able to get mucus up from nose but still has post nasal drip Tried Zyrtec, Claritin without reluef He had ST at begining but resolved. No ear pain + harsh cough Cough continual throughout day + headaches severe at begining with sinu ses and feels better once draining now No SOB or CP No fever or chills PFSH Medical History Allergic rhinitis Anxiety and depression Hypercholesterolemia Obesity (BMI 30-39.9) Surgical History No pertinent past surgical history Family History (Updated 05/26/24 @ 16:04 by MIMI Adam) Father Mouth cancer Alcohol abuse Mother Melanoma Maternal Uncle Lung cancer Prostate cancer Other Substance use disorder Social History (Updated 05/26/24 @ 17:00 by Anita George MD) Housing: House Alcohol intake: current Alcohol intake frequency: a few times a week Alcohol type: beer Comment: 2 days -4 beers each time a week Patient Tobacco Use Status: Former Tobacco user Tobacco use type: Cigarette Years Smoked: quit at 38 years old e-Cigarette/Vaping Use: Never Used Second Hand Smoke Exposure: Yes service: No Current occupational status: employed 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 [employer] Cognitive needs: No Hearing needs: No Vision needs: Yes (Glasses) Review of Systems Const Denies chills, Denies fever(s) and Reports headache(s) Eyes Denies change in vision ENT Denies dizziness, Denies otalgia, Reports headache(s), Reports nasal congestion, Reports nasal discharge, Reports sinus pressure and Reports sore throat Card Denies chest pain, Denies syncope and Denies dyspnea Resp Reports change in phlegm color, Reports cough and Denies dyspnea Musc Denies myalgias Neuro Denies dizziness, Denies syncope and Reports headache(s) Physical Exam Exam Exam: General: Non-toxic, NAD. Speaking full sentences. Skin: Warm dry throughout Eye: EOMI, PERRLA HENT: Airway patent. Uvula midline. No pharyngeal erythema or edema. No MACHINE SILK SCREEN PRINTER. +boggy turninates. Clear rhinorrhea. No septal hematoma. No ethmoid, frontal or maxillary sinus ttp Bilateral canals clear. TM non-erythematous, non-bulging. No TM perforation or hemotympanum noted. Respiratory: CTA bilaterally. No wheezes, rales or rhonchi Cardiac: RRR. No murmur MSK: Full ROM extremities. Neurology: Alert. No aphasia or facial droop. Gait without abnormality Psych: Good mood and affect Vital Signs: Last Vital Signs Temp 97.8 F 04/27/25 10:13 Pulse 87 04/27/25 10:13 BP 140/78 H 04/27/25 10:13 Pulse Ox 98 04/27/25 10:13 Oxygen Delivery Method Room Air 04/27/25 10:13 BMI result Body Mass Index 34.9 Assessment & Plan Assessment & Plan (1) Sinusitis: Code(s): J32.9 - Chronic sinusitis, unspecified Qualifiers: Sinusitis location: other Chronicity: acute Recurrence: non-recurrent Qualified Code(s): J01.80 - Other acute sinusitis Plan: Patient seen and evaluated. Symptoms consistent with viral sinusitis Will trial prednisone; take with food. Avoid alcohol, nsaids or taking late at night Azithromycin will be taken after 5 days of prednisone only if symptoms unchanged or worse. Patient gave verbal understanding and had no additional questions or concerns at time of discharge All questions answered Medications: New azithromycin For 250 mg dose pack: take 500 mg today (day 1), then 250 mg for 4 days (days 2-5) PO 6 tabs 0RF prednisone 40 mg (2 x 20 mg) PO DAILY 10 tabs 0RF Coding Level of Care Code Est Pt Level 3 (98878) Diagnoses Acute non-recurrent sinusitis of other sinus J01.80 Sinusitis location: other Chronicity: acute Recurrence: non-recurrent
--- OUTSIDE RECORDS SUMMARY | 2025-04-27 11:26 | XMS_ITS | Patient Health Record ---
Author Organization [facility] Address [address] [place] [address] Care Team Providers Care Instructor Painting Name Role Phone Anita George MD Primary Care Provider Derian Mccoy [phone] Reason For Referral No Information Medications Medication SIG (Take, Route, Frequency, Duration) Notes Start Date End Date Status Simvastatin Active Probiotic Active Centrum Active Flax Seed Oil Active Vitamin D Active Aspir-81 81 MG Tablet Delayed Release 1 tablet Orally Once a day Active Social History Tobacco Use: Social History Observation Description Date Details (start date - stop date) Former Smoker NA - NA Social History Drugs/Alcohol: Social Info Question Answer Notes Alcohol Screen Did you have a drink containing alcohol in the past year? Yes How often did you have a drink containing alcohol in the past year? 2 to 3 times a week (3 points) How many drinks did you have on a typical day when you were drinking in the past year? 1 or 2 drinks (0 point) How often did you have 6 or more drinks on one occasion in the past year? Never (0 point) Points 3 Interpretation Negative Tobacco Use: Social Info Question Answer Notes Tobacco Use/Smoking Patient is a former smoker How long has it been since you last smoked? 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 be er Problems Problem Type SNOMED Code ICD Code Onset Dates Problem Status W/U Status Risk Notes Problem Screening for malignant neoplasm of colon ([id number]) Encounter for screening for malignant neoplasm of colon (Z12.11) Active confirmed Problem Preprocedural examination ([id number]) Preprocedural examination (Z01.818) Active confirmed Plan Of Treatment Pending Test Test Name Order Date GI BIOPSY 03/18/2018 Future Test Test Name Order Date COLONOSCOPY 02/09/2018 Insurance Providers Payer Name Payer Address Payer Phone Subscriber Number Group Number Insured Name Patient Relationship to Insured Coverage Start Date Coverage End Date [facility] [address] [place], [place] [id number] DEVI KEE Self - patient is the insured Medical (General) History Medical History History ICD Code Denies [place],DM,CVA,Lung disease,renal dise ase Hyperlipidemia Colonoscopy 03/2008 neg exce pt for hyperplastic polyps, diverticulosis, and internal hemorrhoids Surgical History Surgery Date(Month/Year) Benign lymph node from the neck
--- OUTSIDE RECORDS SUMMARY | 2025-04-27 11:27 | XMS_ITS | Patient Health Record ---
[facility] Address [address] [place] [address] Care Team Providers Care Evp Strategy Name Role Phone Anita George Primary Care Provider Kareen Dalton Unavailable [phone] Allergies No Known Allergies Reason For Referral No Information Medications Medication SIG (Take, Route, Fr equency, Duration) Notes Start Date End Date Status Simvastatin 5 MG 1 tablet in the even ing Orally Once a day; Duration: 30 day(s) Activ e Social History Tobacco Use: Social History Observation Description Date Details (start date - stop date) Former Smoker NA - NA Tobacco Use/Smoking Question Answer Notes Are you a: former smoker Additional Findings: Tobacco Non-User Current no n-smoker Alcohol Screen Question Answer Notes Did you have a drink contain ing alcohol in the past year? Yes How often did you have a dri nk containing alcohol in the past year? 2 to 3 times a week (3 points) How often did you have 6 or more drinks on one occasion in the past year? Weekly (3 points) Points 6 Interpretation Positive Tobacco use other than smoking: Question Answer Notes Are you an other tobacco user? No Problems Problem Type SNOMED Code ICD Code Onset Dates Problem Status W/U Status Risk Notes Problem Acquired hallux valgus (63809413) Hallux valgus (acquired), left foot (M20.12) Active confirmed Problem Acquired hallux valgus (76222093) Hallux valgus (acquired), right foot (M20.11) Active confirmed Problem Localized, primary osteoarthritis of the ankle and/or foot (789491163) Primary osteoarthrit is, left ankle and foot (M19.072) Active confirmed Plan Of Treatment Pending Test Test Name Order Date X ray : Foot, left 3V 06/25/2020 Insurance Providers Payer Name Payer Address Payer Phone Subscriber Number Group Number Insured Name Patient Relationship to Insured Coverage Start Date Coverage End Date [facility] [employer] [address] [place] [address] [phone] [id number] Ratna Vázquez Spouse - patient is the spouse of the insured Medical (General) History Medical History History ICD Code Warts Measles Mumps Chicken pox
== END 2025-04-27 10:58 | disposition home or self-care (01) ==
PROVIDERS: PCP Internal Medicine; Visit Provider Physician Assistant
DX: J01.80 Other acute sinusitis (principal)